=== PATIENT | female | born 2000 | race Caucasian/White ===

== ENCOUNTER 2023-06-28 14:15 | Outpatient (REF) | payer BC, SELFPAY ==
--- NOTE | ~2023-06-28 | MR_ITS ---
EXAMINATION: MR KNEE WITHOUT CONTRAST, RIGHT CLINICAL INFORMATION: Right knee pain. COMPARISON: None available. TECHNIQUE: MRI of the knee without contrast was performed using routine sequences on a high-field scanner. FINDINGS: MENISCI: Medial Meniscus: Intact Lateral Meniscus: Horizontal tear of the meniscal body with a tiny peripheral parameniscal cyst LIGAMENTS: Cruciate: Intact Collateral: Intact. EXTENSOR MECHANISM: Intact. The medial patellofemoral ligament reconstruction appears intact. ARTICULAR CARTILAGE/BONE: Patellofemoral Compartment: Cartilage thinning and surface irregularity with subchondral marrow edema at the superolateral aspect of the lateral trochlea. There is a 1.1 cm area of articular cartilage irregularity at the inferior aspect of the medial patellar facet without a full-thickness defect, possibly a surgically repaired or healed osteochondral injury. Medial Compartment: Normal Lateral Compartment: Partial-thickness cartilage defects with underlying marrow edema of the weight-bearing femoral condyle and peripheral cartilage thinning of the tibia with small marginal osteophytes. There is also a small partial-thickness cartilage loss and subchondral edema at the junction of the tibia and lateral tibial spine. JOINT FLUID AND BURSAE: Trace joint effusion. MR/MR knee RT wo con IMPRESSION: 1. Horizontal tear of the lateral meniscus body with a tiny peripheral parameniscal cyst. 2. Mild patellofemoral and lateral compartment osteoarthritis with a trace joint effusion.
== END 2023-06-28 14:16 | disposition home or self-care (01) ==
LOC: HO.MRI 14:15
PROVIDERS: Visit Provider Student in an Organized Health Care Education/Training Program
DX: M93.20 Osteochondritis dissecans of unspecified site (principal); M25.561 Pain in right knee
CPT/HCPCS: 73721